=== PATIENT | female | born 1955 | race Two or more races ===

== ENCOUNTER → 2018-09-10 | Outpatient (CLI) | payer OTHER | END | disposition home or self-care (01) | LOC: EDBD 07:27 → NUCLEAR 07:27 | DX: G90.511 Complex regional pain syndrome I of right upper limb (principal) | CPT/HCPCS: 78315; A9503 ==

== ENCOUNTER 2018-11-16 08:21 | Emergency (ER) | payer OTHER ==
[~2018-11-16] VITALS: Ht 154.9 cm; Wt 56.7 kg
[2018-11-16] MEDS ORDERED: NEURONTIN300 MG (08:28)
[2018-11-16] MEDS ORDERED: OMEGA-31000 MG (08:29)
== END 2018-11-16 09:53 | disposition home or self-care (01) ==
LOC: ER 08:21
DX: M54.2 Cervicalgia (principal)

== ENCOUNTER 2018-12-08 08:46 | Outpatient (CLI) | payer OTHER ==
[~2018-12-08 08:46] MED LIST: NEURONTIN300 MG; OMEGA-31000 MG
== END 2018-12-08 09:12 | disposition home or self-care (01) ==
LOC: SONOGRAMA 08:46 → RAD 08:46
DX: M46.47 Discitis, unspecified, lumbosacral region (principal); M19.90 Unspecified osteoarthritis, unspecified site

== ENCOUNTER 2019-01-08 16:53 | Emergency (ER) | payer OTHER ==
[~2019-01-08] VITALS: Ht 157.5 cm; Wt 55.3 kg
== END 2019-01-08 20:36 | disposition home or self-care (01) ==
LOC: ER 16:53
DX: K58.8 Other irritable bowel syndrome (principal); N20.0 Calculus of kidney; K57.30 Diverticulosis of large intestine without perforation or abscess without bleeding

== ENCOUNTER 2019-03-17 06:59 | Outpatient (CLI) | payer OTHER | END 2019-03-17 07:11 | disposition home or self-care (01) | LOC: LAB 06:59 | DX: N91.2 Amenorrhea, unspecified (principal); E78.49 Other hyperlipidemia; E34.8 Other specified endocrine disorders; N95.1 Menopausal and female climacteric states; E23.6 Other disorders of pituitary gland; R19.00 Intra-abdominal and pelvic swelling, mass and lump, unspecified site; N39.0 Urinary tract infection, site not specified; E55.9 Vitamin D deficiency, unspecified; N73.8 Other specified female pelvic inflammatory diseases; A60.04 Herpesviral vulvovaginitis; Z34.90 Encounter for supervision of normal pregnancy, unspecified, unspecified trimester ==

== ENCOUNTER 2019-03-17 08:29 | Outpatient (CLI) | payer OTHER | END 2019-03-17 08:42 | disposition home or self-care (01) | LOC: NUCLEAR 08:29 | DX: M81.0 Age-related osteoporosis without current pathological fracture (principal) ==

== ENCOUNTER 2019-04-13 07:04 | Outpatient (CLI) | payer OTHER | END 2019-04-13 07:29 | disposition home or self-care (01) | LOC: LAB 07:04 | DX: M19.041 Primary osteoarthritis, right hand (principal); M19.042 Primary osteoarthritis, left hand; M19.072 Primary osteoarthritis, left ankle and foot; M06.89 Other specified rheumatoid arthritis, multiple sites ==

== ENCOUNTER 2019-05-11 06:59 | Outpatient (CLI) | payer OTHER | END 2019-05-11 07:08 | disposition home or self-care (01) | LOC: LAB 06:59 | DX: E11.9 Type 2 diabetes mellitus without complications (principal); E03.8 Other specified hypothyroidism; E78.2 Mixed hyperlipidemia; I10 Essential (primary) hypertension ==

== ENCOUNTER 2019-06-11 06:17 | Outpatient (CLI) | payer OTHER | END 2019-06-11 06:23 | disposition home or self-care (01) | LOC: LAB 06:17 | DX: E11.9 Type 2 diabetes mellitus without complications (principal); E03.8 Other specified hypothyroidism; I10 Essential (primary) hypertension; E78.2 Mixed hyperlipidemia; Z12.11 Encounter for screening for malignant neoplasm of colon; M12.88 Other specific arthropathies, not elsewhere classified, other specified site; N20.0 Calculus of kidney; N28.1 Cyst of kidney, acquired; R39.15 Urgency of urination; N23 Unspecified renal colic; R31.1 Benign essential microscopic hematuria; N39.0 Urinary tract infection, site not specified ==

== ENCOUNTER 2019-06-11 08:38 | Outpatient (CLI) | payer OTHER | END 2019-06-11 08:54 | disposition home or self-care (01) | LOC: SONOGRAMA 08:38 → MAMO-SONO 08:38 → SONOGRAMA 08:54 | DX: R10.84 Generalized abdominal pain (principal); M54.12 Radiculopathy, cervical region; M54.16 Radiculopathy, lumbar region; M62.838 Other muscle spasm ==

== ENCOUNTER → 2019-06-12 09:39 | Outpatient (CLI) | payer OTHER | END | disposition home or self-care (01) | LOC: LAB 09:39 | DX: I10 Essential (primary) hypertension (principal); E11.9 Type 2 diabetes mellitus without complications; E03.8 Other specified hypothyroidism; E78.2 Mixed hyperlipidemia; Z12.11 Encounter for screening for malignant neoplasm of colon ==

== ENCOUNTER 2019-06-23 09:24 | Outpatient (CLI) | payer OTHER | END 2019-06-24 09:05 | disposition home or self-care (01) | LOC: TOM 09:24 | DX: N20.0 Calculus of kidney (principal); M12.88 Other specific arthropathies, not elsewhere classified, other specified site; N28.1 Cyst of kidney, acquired; R39.15 Urgency of urination; R31.1 Benign essential microscopic hematuria; N23 Unspecified renal colic; N39.0 Urinary tract infection, site not specified; D30.02 Benign neoplasm of left kidney | CPT/HCPCS: 74178; Q9965 ==

== ENCOUNTER 2019-09-23 06:30 | Day surgery (SDC) | payer OTHER | END 2019-09-23 14:30 | disposition home or self-care (01) | LOC: AMB-ENDOS 06:30 | PROVIDERS: ATTEND Surgery | DX: K62.89 Other specified diseases of anus and rectum (principal); K57.30 Diverticulosis of large intestine without perforation or abscess without bleeding ==

== ENCOUNTER 2019-10-13 08:09 | Inpatient (IN) | payer OTHER ==
[~2019-10-13] VITALS: Ht 154.9 cm; Wt 56.7 kg
[~2019-10-13 08:09] MED LIST changes: -NEURONTIN300 MG; +NEURONTIN300 MG PO
[2019-10-27] MEDS ORDERED: [UNRECOGNIZED DRUG - OTHER] PO (10:12)
[2019-10-27] MEDS ORDERED: CRESTOR5 MG PO (10:13)
[2019-10-27] MEDS ORDERED: PENTOXIFYLLINE400 MG PO (10:13)
[2019-10-27] MEDS ORDERED: SULINDAC200 MG PO (10:14)
[2019-10-27] MEDS ORDERED: PEPCID AC20 MG PO (10:14)
[2019-10-27] MEDS ORDERED: CALCIUM PO (10:15)
[2019-11-03] MEDS ORDERED: CALCIUM 600-VI1 EAC2 PO (10:58)
[2019-11-03] MEDS ORDERED: ALLEGRA ALLERG180 MG PO (10:59)
[2019-11-06] MEDS ORDERED: PRILOSEC OTC20 MG PO (13:34)
[2019-11-06] MEDS ORDERED: INTESTINEX680 M1 PO (13:34)
[2019-11-06] MEDS ORDERED: PERCOCET 5-3251 EACH PO (13:34)
== END 2019-11-06 15:51 | disposition home or self-care (01) | DRG 331 ==
LOC: SURH 11-03 07:00 → O/R 11-03 08:28 → SURH 11-03 08:28
PROVIDERS: ADMIT Surgery; ATTEND Surgery
PROC: 0DBN4ZZ Excision of Sigmoid Colon, Percutaneous Endoscopic Approach (ICD-10-PCS; 2019-11-03)
PROC: 0DJD8ZZ Inspection of Lower Intestinal Tract, Via Natural or Artificial Opening Endoscopic (ICD-10-PCS; 2019-11-03)
PROC: 0DTP4ZZ Resection of Rectum, Percutaneous Endoscopic Approach (ICD-10-PCS; principal; 2019-11-03 07:00)
DX: K57.30 Diverticulosis of large intestine without perforation or abscess without bleeding (principal); N73.6 Female pelvic peritoneal adhesions (postinfective)

== ENCOUNTER 2019-10-13 08:28 | Outpatient (CLI) | payer OTHER ==
[~2019-10-13 08:28] MED LIST changes: +NEURONTIN300 MG; -NEURONTIN300 MG PO
== END 2019-10-13 08:32 | disposition home or self-care (01) ==
LOC: RAD 08:28
PROVIDERS: ATTEND Surgery
DX: K57.30 Diverticulosis of large intestine without perforation or abscess without bleeding (principal); K59.09 Other constipation

== ENCOUNTER 2019-12-22 07:10 | Outpatient (CLI) | payer OTHER ==
[~2019-12-22 07:10] MED LIST changes: +ALLEGRA ALLERG180 MG PO; +CALCIUM 600-VI1 EAC2 PO; +CALCIUM PO; +CRESTOR5 MG PO; +INTESTINEX680 M1 PO; -NEURONTIN300 MG; +NEURONTIN300 MG PO; +PENTOXIFYLLINE400 MG PO; +PEPCID AC20 MG PO; +PERCOCET 5-3251 EACH PO; +PRILOSEC OTC20 MG PO; +SULINDAC200 MG PO; +[UNRECOGNIZED DRUG - OTHER] PO
== END 2019-12-22 07:24 | disposition home or self-care (01) ==
LOC: LAB 07:10
PROVIDERS: ATTEND Internal Medicine Cardiovascular Disease
DX: E03.8 Other specified hypothyroidism (principal); E11.9 Type 2 diabetes mellitus without complications; E78.2 Mixed hyperlipidemia; I10 Essential (primary) hypertension

== ENCOUNTER 2020-01-21 06:55 | Outpatient (CLI) | payer OTHER | END 2020-01-21 07:03 | disposition home or self-care (01) | LOC: LAB 06:55 | PROVIDERS: ATTEND Internal Medicine Cardiovascular Disease | DX: N20.0 Calculus of kidney (principal) ==

== ENCOUNTER 2020-01-26 08:33 | Outpatient (CLI) | payer OTHER | END 2020-01-26 08:51 | disposition home or self-care (01) | LOC: TOM 08:33 | PROVIDERS: ATTEND Internal Medicine Cardiovascular Disease | DX: N13.2 Hydronephrosis with renal and ureteral calculous obstruction (principal); R10.84 Generalized abdominal pain; M54.5 Low back pain; M17.0 Bilateral primary osteoarthritis of knee ==

== ENCOUNTER 2020-01-31 08:19 | Outpatient (CLI) | payer OTHER | END 2020-01-31 08:38 | disposition home or self-care (01) | LOC: MAMO-SONO 08:19 | PROVIDERS: ATTEND Obstetrics & Gynecology | DX: R92.2 Inconclusive mammogram (principal); N64.59 Other signs and symptoms in breast ==

== ENCOUNTER 2020-03-14 06:42 | Outpatient (CLI) | payer OTHER | END 2020-03-14 06:47 | disposition home or self-care (01) | LOC: LAB 06:42 | PROVIDERS: ATTEND Urology | DX: N20.0 Calculus of kidney (principal); N28.1 Cyst of kidney, acquired; M12.88 Other specific arthropathies, not elsewhere classified, other specified site; R39.15 Urgency of urination; N23 Unspecified renal colic; R31.1 Benign essential microscopic hematuria; N39.0 Urinary tract infection, site not specified; D30.02 Benign neoplasm of left kidney ==

== ENCOUNTER 2020-03-14 07:40 | Outpatient (CLI) | payer OTHER | END 2020-03-14 07:47 | disposition home or self-care (01) | LOC: SONOGRAMA 07:40 → MAMO-SONO 07:45 → SONOGRAMA 07:47 | PROVIDERS: ATTEND Urology | DX: N20.0 Calculus of kidney (principal); N28.1 Cyst of kidney, acquired; M12.88 Other specific arthropathies, not elsewhere classified, other specified site; R39.15 Urgency of urination; R31.1 Benign essential microscopic hematuria; N39.0 Urinary tract infection, site not specified; D30.02 Benign neoplasm of left kidney ==

== ENCOUNTER → 2020-03-22 | Outpatient (CLI) | payer OTHER | END | disposition home or self-care (01) | LOC: NUCLEAR 08:00 | PROVIDERS: ATTEND Physical Medicine & Rehabilitation | DX: I86.8 Varicose veins of other specified sites (principal); I73.9 Peripheral vascular disease, unspecified; I87.2 Venous insufficiency (chronic) (peripheral) ==

== ENCOUNTER → 2020-03-23 | Outpatient (CLI) | payer OTHER | END | disposition home or self-care (01) | LOC: NUCLEAR 07:31 | PROVIDERS: ATTEND Physical Medicine & Rehabilitation | DX: I73.9 Peripheral vascular disease, unspecified (principal); I86.8 Varicose veins of other specified sites ==

== ENCOUNTER 2020-05-02 07:54 | Outpatient (CLI) | payer OTHER | END 2020-05-02 08:02 | disposition home or self-care (01) | LOC: LAB 07:54 | PROVIDERS: ATTEND Internal Medicine Cardiovascular Disease | DX: K59.09 Other constipation (principal); K57.30 Diverticulosis of large intestine without perforation or abscess without bleeding; K29.00 Acute gastritis without bleeding; I10 Essential (primary) hypertension; E11.9 Type 2 diabetes mellitus without complications; E03.8 Other specified hypothyroidism; E78.2 Mixed hyperlipidemia; Z12.11 Encounter for screening for malignant neoplasm of colon ==

== ENCOUNTER 2020-05-03 06:57 | Outpatient (CLI) | payer OTHER | END 2020-05-03 07:00 | disposition home or self-care (01) | LOC: LAB 06:57 | PROVIDERS: ATTEND Internal Medicine Cardiovascular Disease | DX: I10 Essential (primary) hypertension (principal); E11.9 Type 2 diabetes mellitus without complications; E03.8 Other specified hypothyroidism; E78.2 Mixed hyperlipidemia; Z12.11 Encounter for screening for malignant neoplasm of colon ==

== ENCOUNTER 2020-05-18 06:07 | Day surgery (SDC) | payer OTHER | END 2020-05-18 09:29 | disposition home or self-care (01) | LOC: AMB-ENDOS 06:07 → EDSTATUS 13:00 | PROVIDERS: ATTEND Surgery | DX: D13.1 Benign neoplasm of stomach (principal); D13.2 Benign neoplasm of duodenum; Z20.822 Contact with and (suspected) exposure to COVID-19; K62.89 Other specified diseases of anus and rectum ==

== ENCOUNTER 2020-06-06 07:25 | Outpatient (CLI) | payer OTHER | END 2020-06-06 07:44 | disposition home or self-care (01) | LOC: RAD 07:25 → MAMO-SONO 07:45 | PROVIDERS: ATTEND Physical Medicine & Rehabilitation | DX: M25.511 Pain in right shoulder (principal); M25.512 Pain in left shoulder; M75.121 Complete rotator cuff tear or rupture of right shoulder, not specified as traumatic ==

== ENCOUNTER 2020-06-22 07:23 | Emergency (ER) | payer OTHER ==
[~2020-06-22] VITALS: Ht 154.9 cm; Wt 54.4 kg
[2020-06-22] MEDS ORDERED: CLOTRIMAZOLE-BE15 GM TOP (12:44)
[2020-06-22] MEDS ORDERED: ALLERGY RELIEF10 M3 PO (12:44)
== END 2020-06-22 12:49 | disposition home or self-care (01) ==
LOC: ER 07:23
DX: L20.89 Other atopic dermatitis (principal); B35.4 Tinea corporis

== ENCOUNTER → 2020-08-11 07:03 | Outpatient (CLI) | payer OTHER ==
[~2020-08-11 07:03] MED LIST changes: +ALLERGY RELIEF10 M3 PO; +CLOTRIMAZOLE-BE15 GM TOP
== END | disposition home or self-care (01) ==
LOC: LAB 07:03
PROVIDERS: ATTEND Internal Medicine Cardiovascular Disease
DX: I10 Essential (primary) hypertension (principal); E11.9 Type 2 diabetes mellitus without complications; E03.8 Other specified hypothyroidism; E78.2 Mixed hyperlipidemia

== ENCOUNTER 2020-09-14 06:32 | Outpatient (CLI) | payer OTHER | END 2020-09-14 06:35 | disposition home or self-care (01) | LOC: LAB 06:32 | DX: N20.0 Calculus of kidney (principal); M12.9 Arthropathy, unspecified; N28.1 Cyst of kidney, acquired; R39.15 Urgency of urination; N23 Unspecified renal colic; R31.1 Benign essential microscopic hematuria; N39.0 Urinary tract infection, site not specified; D30.02 Benign neoplasm of left kidney ==

== ENCOUNTER 2020-09-15 07:20 | Outpatient (CLI) | payer OTHER | END 2020-09-15 07:31 | disposition home or self-care (01) | LOC: SONOGRAMA 07:20 | PROVIDERS: ATTEND Urology | DX: N20.0 Calculus of kidney (principal); N28.1 Cyst of kidney, acquired; N39.0 Urinary tract infection, site not specified; R39.15 Urgency of urination; N23 Unspecified renal colic; R31.1 Benign essential microscopic hematuria; D30.02 Benign neoplasm of left kidney ==

== ENCOUNTER 2020-09-20 10:51 | Outpatient (CLI) | payer OTHER | END 2020-09-20 10:57 | disposition home or self-care (01) | LOC: SONOGRAMA 10:51 → RAD 10:51 → SONOGRAMA 10:57 → MAMO-SONO 12:15 | PROVIDERS: ATTEND Physical Medicine & Rehabilitation | DX: S93.402A Sprain of unspecified ligament of left ankle, initial encounter (principal); X58.XXXA Exposure to other specified factors, initial encounter; Y93.89 Activity, other specified; Y92.89 Other specified places as the place of occurrence of the external cause; Y99.8 Other external cause status ==

== ENCOUNTER → 2020-10-26 06:30 | Outpatient (CLI) | payer OTHER | END | disposition home or self-care (01) | LOC: LAB 06:30 | PROVIDERS: ATTEND Urology | DX: M12.89 Other specific arthropathies, not elsewhere classified, multiple sites (principal); N20.0 Calculus of kidney; N28.1 Cyst of kidney, acquired; R39.15 Urgency of urination; N23 Unspecified renal colic; R31.1 Benign essential microscopic hematuria; N39.0 Urinary tract infection, site not specified; D30.02 Benign neoplasm of left kidney ==

== ENCOUNTER 2020-10-26 07:25 | Outpatient (CLI) | payer OTHER | END 2020-10-26 07:31 | disposition home or self-care (01) | LOC: TOM 07:25 | PROVIDERS: ATTEND Urology | DX: N20.0 Calculus of kidney (principal); M12.89 Other specific arthropathies, not elsewhere classified, multiple sites; N28.1 Cyst of kidney, acquired; R39.15 Urgency of urination; N23 Unspecified renal colic; R31.1 Benign essential microscopic hematuria; N39.0 Urinary tract infection, site not specified; D30.02 Benign neoplasm of left kidney | CPT/HCPCS: 74178; Q9965 ==

== ENCOUNTER 2020-12-08 09:18 | Outpatient (CLI) | payer OTHER | END 2020-12-08 09:23 | disposition home or self-care (01) | LOC: RAD 09:18 | PROVIDERS: ATTEND Physical Medicine & Rehabilitation | DX: M54.6 Pain in thoracic spine (principal); M54.5 Low back pain ==

== ENCOUNTER → 2020-12-27 | Outpatient (CLI) | payer OTHER | END | disposition home or self-care (01) | LOC: MRI 07:15 | PROVIDERS: ATTEND Physical Medicine & Rehabilitation | DX: M54.5 Low back pain (principal); M54.16 Radiculopathy, lumbar region | CPT/HCPCS: 72148 ==

== ENCOUNTER → 2021-01-11 06:56 | Outpatient (CLI) | payer OTHER | END | disposition home or self-care (01) | LOC: LAB 06:56 | PROVIDERS: ATTEND Internal Medicine Cardiovascular Disease | DX: I10 Essential (primary) hypertension (principal); E11.9 Type 2 diabetes mellitus without complications; E03.8 Other specified hypothyroidism; E78.2 Mixed hyperlipidemia; N20.0 Calculus of kidney; R31.1 Benign essential microscopic hematuria ==

== ENCOUNTER 2021-02-01 07:34 | Outpatient (CLI) | payer OTHER | END 2021-02-01 07:35 | disposition home or self-care (01) | LOC: LAB 07:34 | PROVIDERS: ATTEND Urology | DX: N20.0 Calculus of kidney (principal); M12.89 Other specific arthropathies, not elsewhere classified, multiple sites; N28.1 Cyst of kidney, acquired; R39.15 Urgency of urination; N23 Unspecified renal colic; R31.1 Benign essential microscopic hematuria; N39.0 Urinary tract infection, site not specified; D30.02 Benign neoplasm of left kidney ==

== ENCOUNTER 2021-02-14 07:06 | Outpatient (CLI) | payer OTHER | END 2021-02-14 07:14 | disposition home or self-care (01) | LOC: MAMO-SONO 07:06 | PROVIDERS: ATTEND Internal Medicine Cardiovascular Disease | DX: R92.0 Mammographic microcalcification found on diagnostic imaging of breast (principal); Z12.31 Encounter for screening mammogram for malignant neoplasm of breast ==

== ENCOUNTER 2021-02-26 07:17 | Outpatient (CLI) | payer OTHER | END 2021-02-26 07:21 | disposition home or self-care (01) | LOC: NUCLEAR 07:17 | PROVIDERS: ATTEND Surgery | DX: K57.30 Diverticulosis of large intestine without perforation or abscess without bleeding (principal); K59.09 Other constipation; K29.00 Acute gastritis without bleeding; K44.9 Diaphragmatic hernia without obstruction or gangrene | CPT/HCPCS: 78264; A9541 ==

== ENCOUNTER 2021-05-01 08:20 | Outpatient (CLI) | payer OTHER | END 2021-05-01 08:31 | disposition home or self-care (01) | LOC: LAB 08:20 | PROVIDERS: ATTEND Ophthalmology | DX: D68.8 Other specified coagulation defects (principal); H25.011 Cortical age-related cataract, right eye ==

== ENCOUNTER 2021-05-03 07:44 | Outpatient (CLI) | payer OTHER | END 2021-05-03 07:46 | disposition home or self-care (01) | LOC: RAD 07:44 | PROVIDERS: ATTEND Ophthalmology | DX: H25.011 Cortical age-related cataract, right eye (principal); Z98.41 Cataract extraction status, right eye ==

== ENCOUNTER 2021-06-14 06:42 | Outpatient (CLI) | payer OTHER | END 2021-06-14 06:51 | disposition home or self-care (01) | LOC: LAB 06:42 | PROVIDERS: ATTEND Internal Medicine Cardiovascular Disease | DX: I10 Essential (primary) hypertension (principal); E11.9 Type 2 diabetes mellitus without complications; E03.9 Hypothyroidism, unspecified; Z12.11 Encounter for screening for malignant neoplasm of colon; E55.9 Vitamin D deficiency, unspecified ==

== ENCOUNTER 2021-06-15 09:30 | Outpatient (CLI) | payer OTHER | END 2021-06-15 09:31 | disposition home or self-care (01) | LOC: NUCLEAR 09:30 | PROVIDERS: ATTEND Physical Medicine & Rehabilitation | DX: I73.9 Peripheral vascular disease, unspecified (principal); I87.2 Venous insufficiency (chronic) (peripheral); M79.606 Pain in leg, unspecified ==

== ENCOUNTER 2021-06-16 08:17 | Outpatient (CLI) | payer OTHER | END 2021-06-16 08:22 | disposition home or self-care (01) | LOC: LAB 08:17 | PROVIDERS: ATTEND Internal Medicine Cardiovascular Disease | DX: E11.9 Type 2 diabetes mellitus without complications (principal); E03.9 Hypothyroidism, unspecified; I10 Essential (primary) hypertension; E78.00 Pure hypercholesterolemia, unspecified; Z12.11 Encounter for screening for malignant neoplasm of colon; E55.9 Vitamin D deficiency, unspecified ==

== ENCOUNTER → 2021-06-18 10:21 | Outpatient (CLI) | payer OTHER | END | disposition home or self-care (01) | LOC: NUCLEAR 10:00 | PROVIDERS: ATTEND Physical Medicine & Rehabilitation | DX: I73.9 Peripheral vascular disease, unspecified (principal); I87.2 Venous insufficiency (chronic) (peripheral) ==

== ENCOUNTER 2021-06-22 08:17 | Outpatient (CLI) | payer OTHER | END 2021-06-22 08:29 | disposition home or self-care (01) | LOC: SONOGRAMA 08:17 | PROVIDERS: ATTEND Internal Medicine Cardiovascular Disease | DX: M12.9 Arthropathy, unspecified (principal) ==

== ENCOUNTER 2021-08-07 07:16 | Outpatient (CLI) | payer OTHER | END 2021-08-07 07:17 | disposition home or self-care (01) | LOC: LAB 07:16 | PROVIDERS: ATTEND Urology | DX: M12.9 Arthropathy, unspecified (principal); N20.0 Calculus of kidney; N28.1 Cyst of kidney, acquired; R39.15 Urgency of urination; N23 Unspecified renal colic; R31.1 Benign essential microscopic hematuria; N39.0 Urinary tract infection, site not specified; D30.02 Benign neoplasm of left kidney ==

== ENCOUNTER 2021-08-24 10:44 | Outpatient (CLI) | payer OTHER | END 2021-08-24 10:45 | disposition home or self-care (01) | LOC: NUCLEAR 10:44 | PROVIDERS: ATTEND Obstetrics & Gynecology | DX: N81.0 Urethrocele (principal); E55.9 Vitamin D deficiency, unspecified ==

== ENCOUNTER 2021-09-14 06:57 | Outpatient (CLI) | payer OTHER | END 2021-09-14 08:52 | disposition home or self-care (01) | LOC: TOM 06:57 | PROVIDERS: ATTEND Internal Medicine Cardiovascular Disease | DX: R07.9 Chest pain, unspecified (principal) ==

== ENCOUNTER 2021-09-20 06:36 | Outpatient (CLI) | payer OTHER | END 2021-09-20 06:54 | disposition home or self-care (01) | LOC: LAB 06:36 | DX: L30.8 Other specified dermatitis (principal); L29.9 Pruritus, unspecified; I10 Essential (primary) hypertension; E78.5 Hyperlipidemia, unspecified; E03.9 Hypothyroidism, unspecified; M25.50 Pain in unspecified joint ==

== ENCOUNTER 2021-10-16 06:51 | Outpatient (CLI) | payer OTHER | END 2021-10-16 06:57 | disposition home or self-care (01) | LOC: LAB 06:51 | PROVIDERS: ATTEND Internal Medicine Cardiovascular Disease | DX: I10 Essential (primary) hypertension (principal); E11.9 Type 2 diabetes mellitus without complications; E03.9 Hypothyroidism, unspecified; E78.2 Mixed hyperlipidemia ==

== ENCOUNTER 2021-10-29 08:00 | Outpatient (CLI) | payer OTHER | END 2021-10-29 08:02 | disposition home or self-care (01) | LOC: NUCLEAR 08:00 | PROVIDERS: ATTEND Internal Medicine Cardiovascular Disease | DX: I10 Essential (primary) hypertension (principal); Z88.5 Allergy status to narcotic agent ==

== ENCOUNTER 2021-10-30 08:53 | Outpatient (CLI) | payer OTHER | END 2021-10-30 08:54 | disposition home or self-care (01) | LOC: LAB 08:53 | PROVIDERS: ATTEND Surgery | DX: K57.30 Diverticulosis of large intestine without perforation or abscess without bleeding (principal); K59.09 Other constipation; K29.00 Acute gastritis without bleeding; K44.9 Diaphragmatic hernia without obstruction or gangrene ==

== ENCOUNTER 2021-10-31 07:43 | Outpatient (CLI) | payer OTHER | END 2021-10-31 07:52 | disposition home or self-care (01) | LOC: RAD 07:43 | PROVIDERS: ATTEND Internal Medicine Cardiovascular Disease | DX: M12.9 Arthropathy, unspecified (principal) ==

== ENCOUNTER 2021-11-16 07:21 | Outpatient (CLI) | payer OTHER | END 2021-11-16 07:24 | disposition home or self-care (01) | LOC: LAB 07:21 | PROVIDERS: ATTEND Internal Medicine Cardiovascular Disease | DX: Z03.818 Encounter for observation for suspected exposure to other biological agents ruled out (principal); Z20.822 Contact with and (suspected) exposure to COVID-19 ==

== ENCOUNTER 2021-11-20 09:24 | Outpatient (CLI) | payer OTHER | END 2021-11-20 09:46 | disposition home or self-care (01) | LOC: LAB 09:24 | PROVIDERS: ATTEND Internal Medicine Cardiovascular Disease | DX: J11.1 Influenza due to unidentified influenza virus with other respiratory manifestations (principal); A49.3 Mycoplasma infection, unspecified site; Z20.822 Contact with and (suspected) exposure to COVID-19 ==

== ENCOUNTER 2021-12-20 08:01 | Outpatient (CLI) | payer OTHER | END 2021-12-20 08:03 | disposition home or self-care (01) | LOC: RAD 08:01 | DX: N20.0 Calculus of kidney (principal) ==

== ENCOUNTER 2022-01-15 07:03 | Outpatient (CLI) | payer OTHER | END 2022-01-15 07:13 | disposition home or self-care (01) | LOC: LAB 07:03 | DX: K57.30 Diverticulosis of large intestine without perforation or abscess without bleeding (principal); K59.09 Other constipation; K29.00 Acute gastritis without bleeding; K44.9 Diaphragmatic hernia without obstruction or gangrene; M12.9 Arthropathy, unspecified; N20.0 Calculus of kidney; N28.1 Cyst of kidney, acquired; R39.15 Urgency of urination; N23 Unspecified renal colic; R31.1 Benign essential microscopic hematuria; N39.0 Urinary tract infection, site not specified; D30.02 Benign neoplasm of left kidney ==

== ENCOUNTER 2022-01-15 08:55 | Outpatient (CLI) | payer OTHER | END 2022-01-15 09:04 | disposition home or self-care (01) | LOC: TOM 08:55 | PROVIDERS: ATTEND Urology | DX: N20.0 Calculus of kidney (principal); M12.9 Arthropathy, unspecified; N28.1 Cyst of kidney, acquired; R39.15 Urgency of urination; N23 Unspecified renal colic; R31.1 Benign essential microscopic hematuria; N39.0 Urinary tract infection, site not specified; D30.02 Benign neoplasm of left kidney ==

== ENCOUNTER 2022-01-28 08:05 | Outpatient (CLI) | payer OTHER | END 2022-01-28 08:06 | disposition home or self-care (01) | LOC: LAB 08:05 | PROVIDERS: ATTEND Surgery | DX: K57.30 Diverticulosis of large intestine without perforation or abscess without bleeding (principal); K59.09 Other constipation; K29.00 Acute gastritis without bleeding; K44.9 Diaphragmatic hernia without obstruction or gangrene; Z03.818 Encounter for observation for suspected exposure to other biological agents ruled out; Z20.822 Contact with and (suspected) exposure to COVID-19 ==

== ENCOUNTER 2022-03-22 07:59 | Outpatient (CLI) | payer OTHER | END 2022-03-22 08:09 | disposition home or self-care (01) | LOC: MAMO-SONO 07:59 | PROVIDERS: ATTEND Internal Medicine Cardiovascular Disease | DX: N63.11 Unspecified lump in the right breast, upper outer quadrant (principal) ==

== ENCOUNTER 2022-05-02 09:02 | Emergency (ER) | payer OTHER ==
[~2022-05-02] VITALS: Ht 154.9 cm; Wt 56.7 kg
== END 2022-05-02 14:22 | disposition home or self-care (01) ==
LOC: ER 09:02
DX: M79.672 Pain in left foot (principal); M79.671 Pain in right foot; M06.9 Rheumatoid arthritis, unspecified

== ENCOUNTER → 2022-05-03 | Outpatient (CLI) | payer OTHER | END | disposition home or self-care (01) | LOC: NUCLEAR 07:45 | PROVIDERS: ATTEND General Practice | DX: I87.2 Venous insufficiency (chronic) (peripheral) (principal); M79.672 Pain in left foot ==

== ENCOUNTER 2022-05-22 07:11 | Outpatient (CLI) | payer OTHER | END 2022-05-22 13:49 | disposition home or self-care (01) | LOC: MRI 07:11 | PROVIDERS: ATTEND Physical Medicine & Rehabilitation | DX: M54.50 Low back pain, unspecified (principal); M54.16 Radiculopathy, lumbar region | CPT/HCPCS: 72148 ==

== ENCOUNTER 2022-06-25 11:02 | Emergency (ER) | payer OTHER ==
[~2022-06-25] VITALS: Ht 154.9 cm; Wt 58.1 kg
[2022-06-25] MEDS ORDERED: EZALLOR SPRINKLE5 MG (11:33)
[2022-06-25] MEDS ORDERED: DEXILANT60 MG (11:34)
[2022-06-25] MEDS ORDERED: ACETAMINOPHEN650 MG (11:34)
== END 2022-06-25 14:32 | disposition home or self-care (01) ==
LOC: ER 11:02
DX: T22.111A Burn of first degree of right forearm, initial encounter (principal); T31.0 Burns involving less than 10% of body surface; X17.XXXA Contact with hot engines, machinery and tools, initial encounter; Y93.89 Activity, other specified; Y92.9 Unspecified place or not applicable

== ENCOUNTER 2022-07-23 06:42 | Outpatient (CLI) | payer OTHER ==
[~2022-07-23 06:42] MED LIST changes: +ACETAMINOPHEN650 MG; +DEXILANT60 MG; +EZALLOR SPRINKLE5 MG
== END 2022-07-23 06:56 | disposition home or self-care (01) ==
LOC: LAB 06:42
PROVIDERS: ATTEND Urology
DX: R31.1 Benign essential microscopic hematuria (principal); N20.0 Calculus of kidney; N23 Unspecified renal colic; N39.0 Urinary tract infection, site not specified

== ENCOUNTER 2022-07-25 07:22 | Outpatient (CLI) | payer OTHER | END 2022-07-25 07:23 | disposition home or self-care (01) | LOC: LAB 07:22 | PROVIDERS: ATTEND Internal Medicine Cardiovascular Disease | DX: E11.9 Type 2 diabetes mellitus without complications (principal); E03.9 Hypothyroidism, unspecified; E78.2 Mixed hyperlipidemia; K92.89 Other specified diseases of the digestive system; E55.9 Vitamin D deficiency, unspecified; I10 Essential (primary) hypertension; Z12.11 Encounter for screening for malignant neoplasm of colon ==

== ENCOUNTER 2022-08-09 07:03 | Outpatient (CLI) | payer OTHER | END 2022-08-09 07:11 | disposition home or self-care (01) | LOC: TOM 07:03 | PROVIDERS: ATTEND Psychiatry & Neurology Neurology | DX: M54.2 Cervicalgia (principal); M54.12 Radiculopathy, cervical region; G44.219 Episodic tension-type headache, not intractable | CPT/HCPCS: 72141 ==

== ENCOUNTER 2022-08-13 08:04 | Outpatient (CLI) | payer OTHER | END 2022-08-13 08:09 | disposition home or self-care (01) | LOC: LAB 08:04 | PROVIDERS: ATTEND Internal Medicine Cardiovascular Disease | DX: I10 Essential (primary) hypertension (principal); E78.00 Pure hypercholesterolemia, unspecified ==

== ENCOUNTER 2022-11-15 07:08 | Outpatient (CLI) | payer OTHER | END 2022-11-15 07:09 | disposition home or self-care (01) | LOC: RAD 07:08 | PROVIDERS: ATTEND Physical Medicine & Rehabilitation | DX: M01.X0 Direct infection of unspecified joint in infectious and parasitic diseases classified elsewhere (principal) ==

== ENCOUNTER 2022-12-17 07:24 | Outpatient (CLI) | payer OTHER | END 2022-12-17 07:35 | disposition home or self-care (01) | LOC: LAB 07:24 | PROVIDERS: ATTEND Internal Medicine Cardiovascular Disease | DX: I10 Essential (primary) hypertension (principal); E11.9 Type 2 diabetes mellitus without complications; E78.2 Mixed hyperlipidemia; R79.1 Abnormal coagulation profile; N20.0 Calculus of kidney ==

== ENCOUNTER 2022-12-19 08:04 | Outpatient (CLI) | payer OTHER | END 2022-12-19 08:13 | disposition home or self-care (01) | LOC: MRI 08:04 | PROVIDERS: ATTEND Anesthesiology Pain Medicine | DX: M54.2 Cervicalgia (principal); M47.892 Other spondylosis, cervical region | CPT/HCPCS: 72141 ==

== ENCOUNTER 2022-12-26 07:09 | Outpatient (CLI) | payer OTHER | END 2022-12-26 07:10 | disposition home or self-care (01) | LOC: NUCLEAR 07:09 | PROVIDERS: ATTEND Surgery | DX: K57.30 Diverticulosis of large intestine without perforation or abscess without bleeding (principal); K59.09 Other constipation; K29.00 Acute gastritis without bleeding; K44.9 Diaphragmatic hernia without obstruction or gangrene | CPT/HCPCS: 78264; A9541 ==

== ENCOUNTER 2023-01-30 06:40 | Outpatient (CLI) | payer OTHER | END 2023-01-30 07:00 | disposition home or self-care (01) | LOC: MAMO-SONO 06:40 | PROVIDERS: ATTEND Internal Medicine Cardiovascular Disease | DX: Z12.31 Encounter for screening mammogram for malignant neoplasm of breast (principal); N60.12 Diffuse cystic mastopathy of left breast ==

== ENCOUNTER 2023-02-07 06:41 | Outpatient (CLI) | payer OTHER | END 2023-02-07 06:52 | disposition home or self-care (01) | LOC: LAB 06:41 | PROVIDERS: ATTEND Physical Medicine & Rehabilitation | DX: M06.9 Rheumatoid arthritis, unspecified (principal); M13.0 Polyarthritis, unspecified; M35.00 Sjogren syndrome, unspecified; K30 Functional dyspepsia; K29.00 Acute gastritis without bleeding; R19.5 Other fecal abnormalities ==

== ENCOUNTER 2023-02-10 07:33 | Outpatient (CLI) | payer OTHER ==
[2023-02-10 13:29] LABS: ob NEGATIVE (NEGATIVE)
== END 2023-02-10 07:34 | disposition home or self-care (01) ==
LOC: LAB 07:33
PROVIDERS: ATTEND Physical Medicine & Rehabilitation
DX: K30 Functional dyspepsia (principal); R19.5 Other fecal abnormalities; K29.00 Acute gastritis without bleeding

== ENCOUNTER 2023-05-21 08:20 | Outpatient (CLI) | payer OTHER | END 2023-05-21 08:30 | disposition home or self-care (01) | LOC: MRI 08:20 | PROVIDERS: ATTEND Physical Medicine & Rehabilitation | DX: M54.2 Cervicalgia (principal); M48.02 Spinal stenosis, cervical region | CPT/HCPCS: 72141 ==

== ENCOUNTER 2023-07-09 09:57 | Outpatient (CLI) | payer OTHER | END 2023-07-09 10:03 | disposition home or self-care (01) | LOC: TOM 09:57 | PROVIDERS: ATTEND Anesthesiology Pain Medicine | DX: M54.6 Pain in thoracic spine (principal) ==

== ENCOUNTER 2023-10-15 09:49 | Outpatient (CLI) | payer OTHER | END 2023-10-15 10:00 | disposition home or self-care (01) | LOC: RAD 09:49 | PROVIDERS: ATTEND Internal Medicine Cardiovascular Disease | DX: M12.9 Arthropathy, unspecified (principal); M10.9 Gout, unspecified ==

== ENCOUNTER 2024-01-20 08:13 | Outpatient (CLI) | payer OTHER | END 2024-01-20 08:23 | disposition home or self-care (01) | LOC: RAD 08:13 | DX: N20.0 Calculus of kidney (principal); M25.572 Pain in left ankle and joints of left foot; R22.42 Localized swelling, mass and lump, left lower limb; M22.42 Chondromalacia patellae, left knee ==

== ENCOUNTER 2024-02-04 07:05 | Outpatient (CLI) | payer OTHER | END 2024-02-04 07:11 | disposition home or self-care (01) | LOC: MAMO-SONO 07:05 | PROVIDERS: ATTEND Obstetrics & Gynecology | DX: N60.11 Diffuse cystic mastopathy of right breast (principal); N60.12 Diffuse cystic mastopathy of left breast; Z12.31 Encounter for screening mammogram for malignant neoplasm of breast ==

== ENCOUNTER 2024-03-17 07:42 | Outpatient (CLI) | payer OTHER | END 2024-03-17 07:49 | disposition home or self-care (01) | LOC: RAD 07:42 | PROVIDERS: ATTEND Physical Medicine & Rehabilitation | DX: M54.2 Cervicalgia (principal); M54.6 Pain in thoracic spine; M25.511 Pain in right shoulder ==

== ENCOUNTER 2024-04-20 08:17 | Outpatient (CLI) | payer OTHER | END 2024-04-20 08:33 | disposition home or self-care (01) | LOC: MRI 08:17 | PROVIDERS: ATTEND Anesthesiology Pain Medicine | DX: M54.59 Other low back pain (principal) | CPT/HCPCS: 72148 ==

== ENCOUNTER 2024-04-21 08:00 | Outpatient (CLI) | payer OTHER | END 2024-04-21 08:06 | disposition home or self-care (01) | LOC: TOM 08:00 | PROVIDERS: ATTEND Urology | DX: N23 Unspecified renal colic (principal); M12.9 Arthropathy, unspecified; N20.0 Calculus of kidney; N28.1 Cyst of kidney, acquired; R39.15 Urgency of urination; R31.1 Benign essential microscopic hematuria; N39.0 Urinary tract infection, site not specified; D30.02 Benign neoplasm of left kidney ==

== ENCOUNTER 2024-06-24 07:46 | Outpatient (CLI) | payer OTHER | END 2024-06-24 07:55 | disposition home or self-care (01) | LOC: MRI 07:46 | PROVIDERS: ATTEND Physical Medicine & Rehabilitation | DX: M25.511 Pain in right shoulder (principal) | CPT/HCPCS: 73221 ==

== ENCOUNTER 2024-07-20 06:49 | Emergency (ER) | payer OTHER ==
[~2024-07-20] VITALS: Ht 154.9 cm; Wt 60.3 kg
[2024-07-20] MEDS ORDERED: TRAMADOL HCL50 MG PO (07:47)
[2024-07-20] MEDS ORDERED: PREGABALIN50 MG (07:48)
[2024-07-20] MEDS ORDERED: FAMOtidine 10 MG/ML (4ML VIAL) IV STA (08:22)
[2024-07-20] MEDS ORDERED: FAMOTIDINE/PF 20 MG/2 ML VIAL ONE (08:35)
[2024-07-20 09:28] LABS: HEMATOCRIT 42.5 % (36.0-45.00); HEMOGLOBIN 14.7 g/dL (12.0-15.00); MEAN CELL VOLUME 87.4 fL (80.00-100.00); MEAN CORPUSCULAR HEMOGLOBIN 30.1 pg (27.00-32.0); MEAN CORPUSCULAR HGB CONC 34.5 g/dl (32.0-36.0); PLATELET COUNT 219 K/uL (150-450); RED BLOOD COUNT 4.87 M/uL (4.00-6.00); RED CELL DISTRIBUTION WIDTH 13.3 % (11.5-14.5)
[2024-07-20 09:55] LABS: CALCIUM 10.4 mg/dL (8.5-10.1); CREATININE SERUM 0.71 mg/dL (0.55-1.02); GFR 81.15; POTASSIUM 4.25 mEq/L (3.5-5.1)
== END 2024-07-20 11:01 | disposition home or self-care (01) ==
LOC: ER 06:50
PROVIDERS: General Practice
DX: R53.81 Other malaise (principal); R11.10 Vomiting, unspecified; Z20.822 Contact with and (suspected) exposure to COVID-19; I10 Essential (primary) hypertension
CPT/HCPCS: 36415; 96365; 99282; J3490

== ENCOUNTER 2024-10-14 07:08 | Outpatient (CLI) | payer OTHER ==
[~2024-10-14 07:08] MED LIST changes: +PREGABALIN50 MG; +TRAMADOL HCL50 MG PO
== END 2024-10-14 07:13 | disposition home or self-care (01) ==
LOC: MRI 07:08
PROVIDERS: ATTEND Psychiatry & Neurology Neurology
DX: M54.12 Radiculopathy, cervical region (principal)
CPT/HCPCS: 72141

== ENCOUNTER 2025-02-02 07:06 | Outpatient (CLI) | payer OTHER | END 2025-02-02 07:14 | disposition home or self-care (01) | LOC: RAD 07:06 | PROVIDERS: ATTEND Internal Medicine Cardiovascular Disease | DX: R10.9 Unspecified abdominal pain (principal) ==

== ENCOUNTER 2025-02-10 09:32 | Outpatient (CLI) | payer OTHER | END 2025-02-10 09:37 | disposition home or self-care (01) | LOC: MAMO-SONO 09:32 | PROVIDERS: ATTEND Internal Medicine Cardiovascular Disease | DX: N60.11 Diffuse cystic mastopathy of right breast (principal); N60.12 Diffuse cystic mastopathy of left breast; Z12.31 Encounter for screening mammogram for malignant neoplasm of breast ==